=== PATIENT | female | born 1950 | race Caucasian/White ===

== ENCOUNTER → 2017-03-14 08:18 | Outpatient (CLI) | payer MEDICARE, BC ==
--- NOTE | 2017-03-23 07:06 | EMG ---
PATIENT:PIA AMES DATE OF SERVICE: 03/14/17 MEDICAL RECORD: [id number] DATE OF : 48 LOCATION: [facility] ADMISSION DATE: REFERRING PHYSICIAN: EDE MCKOY MD INTERPRETING PHYSICIAN: CASSIDY SÁNCHEZ MD DATE OF SERVICE: 03/14/2017 REFERRED BY: Ede Mckoy MD ELECTROMYOGRAPHIC DATA: Electromyographic examination is limited to both lower extremities. In the right lower extremity, right peroneal motor stimulation elicits a compound motor action potential with a distal latency of 3.8 milliseconds, peak amplitude of 4 millivolts, and calculated conduction velocity of 39 meters per second. Right tibial motor stimulation elicits a compound motor action potential with a distal latency of 6.4 milliseconds, peak amplitude of 14 millivolts, and calculated conduction velocity of 44 meters per second. Antidromic right sural sensory stimulation elicits a response with a distal latency of 3.2 milliseconds and amplitude of 8 microvolts. Proximal stimulation does not elicit a reliable response. The right lower extremity H reflex recording at gastrocsoleus has a latency of 36 milliseconds. In the left lower extremity, left peroneal motor stimulation elicits a compound motor action potential with a distal latency of 4.5 milliseconds, peak amplitude of 5 millivolts, and calculated conduction velocity of 33 meters per second. Left tibial motor stimulation elicits a compound motor action potential with a distal latency of 5.3 milliseconds, peak amplitude of 14 millivolts, and calculated conduction velocity of 42 meters per second. Antidromic left sural sensory stimulation elicits a response with a distal latency of 3.2 milliseconds and amplitude of 5 microvolts. Proximal stimulation fails to elicit a reliable response. The left lower extremity H reflex recording at gastrocsoleus is absent. Needle electrode examination is limited to both lower extremities as well. Muscles interrogated include the abductor hallucis, extensor digitorum brevis, abductor digiti quinti, tibialis anterior, medial gastrocnemius, vastus lateralis, semitendinosis, and gluteus aidan. There is no abnormality of insertional activity and no abnormal spontaneous activity seen in all muscles interrogated. Motor unit potential morphology, pattern of motor unit potential firing, and recruitment are normal in all muscles sampled. INTERPRETATION: Electromyographic examination of both lower extremities is indicative of a diffuse disorder of the lower motor neuron in both lower extremities, mild in degree electrically, consistent with diagnosis of a sensory motor peripheral polyneuropathy. There is no electrical evidence of a superimposed lumbosacral radiculopathy or other lesion of the lower motor neuron in the lower extremities at this time. There is no evidence of active denervation. TRANSINT:[id number] Voice Confirmation ID: [id number] DOCUMENT ID: [id number] ELECTROMYGRAM/NERVE CONDUCTION [id number] PIA AMES, CASSIDY Torres MD at 0706 CC: [id number] DICTATION DATE: 03/15/17 0803 CLINIC LPN: 03/15/17 1358 DEP CLI 03/14/17 [id number] [place] [address]
== END | disposition home or self-care (01) ==
LOC: D.CN 08:18
DX: R20.2 Paresthesia of skin (principal)